=== PATIENT | female | born 1975 | race Caucasian/White ===

== ENCOUNTER 2016-12-01 14:23 | Emergency (ER) | payer SELFPAY ==
[2016-12-01 14:55] VITALS: BP 120/81; PULSE 121; RESP 20; TEMP 98.1; O2SAT 97
--- NOTE | 2016-12-01 16:38 | UCPHY ---
H & P Time Seen by Provider: 12/01/16 16:07 Patient Type: Established HPI/ROS: 41-year-old female presents complaining of a sinus infection she states she has had sinus congestion for several days greenish discharge from her nose is, postnasal drip. She states she gets sinusitis every now and then. Review of systems As per HPI General no fever no chills no weakness HEENT no eye pain no eye discharge. No eye redness, no sore throat Respiratory no cough, no shortness of breath Cardiac no chest pain, no peripheral edema GI no abdominal pain, no diarrhea, no constipation, no nausea, no vomiting no flank pain, no hematuria, no dysuria Musculoskeletal no myalgias, no joint pain Heme no easy bruising, no easy bleeding Endo no polyuria, no polydipsia Skin no rashes, no pruritus Neuro no syncope, no dizziness, no headaches Psych is no suicidal ideation, no homicidal ideation Past Medical/Surgical History: Chronic pain Frequent sinusitis Social History: Alcohol socially, denies drug use Smoking Status: Current every day smoker Physical Exam: 41-year-old female Alert and oriented nontoxic appearance, no acute distress afebrile Atraumatic normocephalic Extraocular muscles intact, anicteric Nares mild yellowish discharge Oropharynx mild erythema no tonsillar swelling no exudate no uvular deviation, tolerating own secretions Neck supple no lymphadenopathy Lungs clear to auscultation bilaterally Heart regular rate and rhythm Abdomen normoactive bowel sounds soft nontender Extremities no cyanosis clubbing or edema Skin no rash Constitutional: Initial Vital Signs Temperature (C) 36.7 C 12/01/16 14:49 Heart Rate 121 H 12/01/16 14:49 Respiratory Rate 20 12/01/16 14:49 Blood Pressure 120/81 H 12/01/16 14:49 O2 Sat (%) 97 12/01/16 14:49 O2 Delivery Mode Room Air Allergies/Adverse Reactions: hydromorphone [Hydromorphone] Allergy (Intermediate, Verified 08/21/09 17:18) CRYING Home Medications: Medication Instructions Recorded Cyclobenzaprine HCl 07/30/15 Fentanyl 07/30/15 LaMICtal 07/30/15 Lyrica 07/30/15 Oxycodone HCl 07/30/15 Tegretol 07/30/15 Wellbutrin Sr 07/30/15 Hydroxyzine Pamoate 25 mg PO TID PRN #30 capsule 12/01/16 Sulfamethox/Tmp 800/160 mg 1 tab PO BID #20 tab 12/01/16 [Bactrim Ds] Medical Decision Making ED Course/Re-evaluation: Patient seen and evaluated for sinus congestion, postnasal drip, body aches. Impression Sinusitis Plan Bactrim DS Follow-up PCP Departure - Departure Disposition: Home, Routine, Self-Care Clinical Impression: Sinusitis, Anxiety Condition: Good Instructions: Sinusitis (ED), Anxiety (ED) Referrals: John Burton MD [Primary Care Provider] - As per Instructions Prescriptions: Sulfamethox/Tmp 800/160 mg [Bactrim Ds] 1 tab PO BID #20 tab Hydroxyzine Pamoate 25 mg PO TID PRN #30 capsule PRN Reason: Anxiety - PQRS PQRS Measurement: na
== END 2016-12-01 17:07 | disposition home or self-care (01) ==
LOC: CED 14:23
DX: J32.9 Chronic sinusitis, unspecified (principal); F41.9 Anxiety disorder, unspecified; F17.200 Nicotine dependence, unspecified, uncomplicated
CPT/HCPCS: G0463-PO

== ENCOUNTER → 2017-07-28 | Outpatient (CLI) | payer OTHER | LOC: FIMAGING 07:15 | DX: M51.36 Other intervertebral disc degeneration, lumbar region (principal); M48.02 Spinal stenosis, cervical region; M50.323 Other cervical disc degeneration at C6-C7 level; M46.92 Unspecified inflammatory spondylopathy, cervical region; M46.96 Unspecified inflammatory spondylopathy, lumbar region; M48.061 Spinal stenosis, lumbar region without neurogenic claudication; G95.89 Other specified diseases of spinal cord; Z98.890 Other specified postprocedural states ==